=== PATIENT | male | born 1980 | race Hispanic/Latino ===

== ENCOUNTER 2018-09-20 08:00 | Emergency (ER) | payer SELFPAY ==
[2018-09-20] MEDS ORDERED: Ibuprofen 800 MG TAB ONE (09:35)
== END 2018-09-20 10:02 | disposition home or self-care (01) ==
LOC: ERS 08:00
DX: K64.4 Residual hemorrhoidal skin tags (principal)
CPT/HCPCS: 99283

== ENCOUNTER 2023-12-02 13:31 | Emergency (ER) | payer OTHER ==
[~2023-12-02 13:31] MED LIST: Iopamidol-370 76% 500 ML MDV (1 ML CHARGE) ONE
[2023-12-02] MEDS ORDERED: Ketorolac Tromethamine 30 MG (1 mL) VIAL ONE (14:38)
[2023-12-02] MEDS ORDERED: Orphenadrine Citrate 60 MG/2 ML VIAL ONE (14:38)
== END 2023-12-02 16:53 | disposition home or self-care (01) ==
LOC: ERS 13:31
DX: S20.222A Contusion of left back wall of thorax, initial encounter (principal); V19.9XXA Pedal cyclist (driver) (passenger) injured in unspecified traffic accident, initial encounter
CPT/HCPCS: 71046; 71260; 74177; 96374; 96375; J1885; J2360; Q9967